=== PATIENT | female | born 1955 | race Native Hawaiian/Other Pacific Islander ===

== ENCOUNTER 2020-08-06 10:56 | Emergency (ER) | payer OTHER ==
[~2020-08-06] VITALS: Ht 162.6 cm; Wt 68.0 kg
[2020-08-06 10:58] VITALS: TEMP 98.5
[2020-08-06 12:00] VITALS: BP 120/68
== END 2020-08-06 12:07 | disposition home or self-care (01) ==
LOC: ED 10:56
DX: T80.62XA Other serum reaction due to vaccination, initial encounter (principal); R22.1 Localized swelling, mass and lump, neck; T50.Z95A Adverse effect of other vaccines and biological substances, initial encounter; Y92.89 Other specified places as the place of occurrence of the external cause
CPT/HCPCS: 96374; 99284; J1100